=== PATIENT | male | born 2000 | race Two or more races ===

== ENCOUNTER 2019-06-16 21:51 | Emergency (ER) | payer BC ==
--- NOTE | 2019-06-16 22:23 | XR ---
EXAMINATION TYPE: XR hand complete RT DATE OF EXAM: 06/16/2019 COMPARISON: NONE HISTORY: Pain second digit TECHNIQUE: 3 views FINDINGS: Metacarpals are intact. I see no fracture nor dislocation. Index finger is intact. There is no evidence of a radiopaque foreign body. IMPRESSION: Negative exam. No fracture seen.
[2019-06-16] MEDS ORDERED: CEPHALEXIN 500MG STARTER PACK 4 CAP BTL PO STA (23:00)
--- NOTE | 2019-06-16 23:08 | ED ---
Wound/Laceration HPI - General Chief Complaint: Wound/Laceration Stated Complaint: Hand Lac Time Seen by Provider: 06/16/19 22:00 Source: patient Mode of arrival: ambulatory Limitations: no limitations - History of Present Illness Initial Comments: 19-year-old male patient presents to the emergency department today for evaluation of laceration to the right hand. Patient states that he was working when his hand slipped from the drill and hit a piece of galvanized steel causing the injury. Patient states that coworkers cleanse the area applied quick clot and the glue and then wrapped the wound in a dressing. Patient states this occurred around 11:00 this morning. States he has had some pain and discomfort to the area. Denies numbness or tingling to the hand. Patient states his last tetanus vaccine was 2 years ago. He denies any other injuries. Patient denies any headache, neck pain, back pain, chest pain, shortness of breath, dizziness, weakness, abdominal pain, nausea, vomiting, or difficulties with bowel movements or urination. - Related Data Previous Rx's Medication Instructions Recorded Cephalexin [Keflex] 500 mg PO BID #10 cap 06/16/19 Allergies Allergy/AdvReac Type Severity Reaction Status Date / Time Sulfa (Sulfonamide Allergy Rash/Hives Verified 06/16/19 21:56 Antibiotics) Review of Systems ROS Statement: Those systems with pertinent positive or pertinent negative responses have been documented in the HPI. ROS Other: All systems not noted in ROS Statement are negative. Past Medical History Past Medical History: No Reported History History of Any Multi-Drug Resistant Organisms: None Reported Past Surgical History: No Surgical Hx Reported Past Psychological History: No Psychological Hx Reported Smoking Status: Never smoker Past Alcohol Use History: None Reported Past Drug Use History: None Reported General Exam Limitations: no limitations General appearance: alert, in no apparent distress, other (Physical well- developed, well-nourished adult male patient in no acute distress. Vital signs upon presentation are temperature 97.9F, pulse 50, respirations 20, blood pressure 130/68, pulse ox 99% on room air.) Respiratory exam: Present: normal lung sounds bilaterally. Absent: respiratory distress, wheezes, rales, rhonchi, stridor Cardiovascular Exam: Present: regular rate, normal rhythm, normal heart sounds. Absent: systolic murmur, diastolic murmur, rubs, gallop, clicks Extremities exam: Present: full ROM, tenderness (Tenderness over the second MCP joint), normal capillary refill, other (There is irregular 1.5 cm laceration noted over the right MCP joint dorsally. There is mild bleeding. Skin is otherwise pink, warm, dry. Cap refills less than 3 seconds. Radial pulses 2+ and equal bilaterally). Absent: normal inspection, pedal edema, joint swelling, calf tenderness Course Vital Signs 06/16/19 06/16/19 21:54 23:13 Temperature 97.9 F 98 F Pulse Rate 50 L 62 Respiratory 20 18 Rate Blood Pressure 130/68 126/72 O2 Sat by Pulse 99 100 Oximetry Medical Decision Making - Medical Decision Making 19-year-old male patient presented to the emergency department today for evaluation of laceration to the right hand. Physical examination did reveal an irregular laceration over the right MCP joint. Upon arrival patient had a hardened mixture of chronic clot and glue covering the wound. This did have to be soaked and the covering carefully removed. The laceration was cleansed but due to the time since the injury and the unknown glue mixture I will leave the wound open to heal by secondary intention. X-rays negative for any signs of fracture. Patient was educated regarding wound care including washing with antibacterial soap and water. He is educated regarding signs or symptoms of infection. He will be started on Keflex. He is instructed to keep the wound covered while working. He is instructed to follow-up with his primary care physician for recheck in 1-2 days. Return parameters discussed in detail. He verbalizes understanding and agrees with this plan. - Radiology Data Radiology results: report reviewed, image reviewed 3 views of the right hand are obtained. Report was reviewed in its entirety. Impression by Dr. Mario shows negative exam. No fracture seen Disposition Clinical Impression: Laceration of right hand Disposition: HOME SELF-CARE Condition: Good Instructions (If sedation given, give patient instructions): Laceration Without Closure (ED) Additional Instructions: Cleanse wound twice daily with warm water and antibacterial soap. Monitor for signs or symptoms of infection including but not limited to redness, swelling, drainage of pus, fever, or chills. Keep covered while working. Do not submerge in water until healed. Follow-up with your primary care physician for recheck in 1-2 days. Return to the emergency department immediately for any new, worsening, or concerning symptoms. Prescriptions: Cephalexin [Keflex] 500 mg PO BID #10 cap Is patient prescribed a controlled substance at d/c from ED?: No Referrals: None,Stated [Primary Care Provider] - 1-2 days Time of Disposition: 23:08
[2019-06-16 23:15] VITALS: BP 126/72; PULSE 62; RESP 18; TEMP 98
== END 2019-06-16 23:14 | disposition home or self-care (01) ==
LOC: EC 21:51
DX: S61.411A Laceration without foreign body of right hand, initial encounter (principal); Z88.2 Allergy status to sulfonamides; W26.8XXA Contact with other sharp object(s), not elsewhere classified, initial encounter; Y93.89 Activity, other specified; Y92.69 Other specified industrial and construction area as the place of occurrence of the external cause
CPT/HCPCS: 99283